=== PATIENT | female | born 1980 | race Caucasian/White ===

== ENCOUNTER 2018-12-13 08:05 | Emergency (ER) | payer BC ==
[~2018-12-13] VITALS: Ht 175.3 cm; Wt 90.7 kg
--- OUTSIDE RECORDS SUMMARY | 2018-12-13 08:08 | XMS REPORT | Clinical Summary ---
Author Author CELINA [facility] Address Unknown Phone Unavailable Care Team Providers Care Slp Teacher Name Role Phone Asuncion Hany Lazo PCP Allergies Comments Active Allergy Reactions Severity Noted Date Chg wipes, rash with itching and burning sensation Chlorhexidine Towelette Rash High 10/08/2017 Medications End Date Status Medication Sig Dispensed Refills Start Date Active olmesartan-hydrochlorothi Take 1 tablet 0 azide (BENICAR HCT) by mouth 40-12.5 mg per tablet daily. Active Problems Problem Noted Date Breast hypertrophy 10/08/2017 Social History Date Tobacco Use Types Packs/Day Years Used Never Smoker Smokeless Tobacco: Never Used Alcohol Use Drinks/Week oz/Week Comments Yes occasional Sex Assigned at Date Recorded Not on file Industry Job Start Date Occupation Not on file Not on file Not on file Travel End Travel History Travel Start No recent travel history available. Last Filed Vital Signs Not on file Plan of Treatment Not on file Results Not on fileafter 12/12/2017 Insurance Payer Benefit Subscriber ID Type Phone Address Plan / Group [employer] xxxxxxxx SURGERY PROGRAM
--- OUTSIDE RECORDS SUMMARY | 2018-12-13 08:08 | XMS REPORT ---
Author Author [facility] Address Unknown Phone Unavailable Care Team Providers Care Shorthand Reporter Name Role Phone ROWDY FREEDMAN PP Unavailable ANNE MORAN Unavailable Unavailable Problems This patient has no known problems. Allergies, Adverse Reactions, Alerts This patient has no known allergies or adverse reactions. Medications This patient has no known medications. Encounters Start Date/Time End Date/Time Encounter Type Admission Type Attending Clinicians Care Facility Care Department Encounter ID 2016-11-10 15:23:00 Inpatient [facility] [id number] 2016-11-09 13:18:00 2016-11-09 13:18:00 Emergency E [facility] [id number] 2012-11-15 16:23:00 2012-11-15 16:23:00 Emergency E [facility] [id number] Results Test Description Test Time Test Comments Text Results Atomic Results Result Comments TISSUE EXAM 2017-10-13 09:05:00 Surgical Pathology Report Case: [id number] Authorizing Provider: Jai Moran MD Collected: 10/08/2017 1121 Ord ering Location: [facility] PERI[facility] Received: 10/09/2017 0751 SERVICES Pathologist: Jyothi Cortez MD Specimens: A) - Breast, Right, 673 grams B) - Breast, Left, 540 grams A. BREAST, RIGHT, EXCISION - BENIGN BREAST TISSUE - BENIGN SKINB. BREAST, LEFT, EXCISION - BENIGN BREAST TISSUE - ATYPICAL LOBULAR HYPERPLASIA - TINY MICROSCOPIC FOCUS - BENIGN SKIN Signing Pathologist Direct Phone Line: [phone] signed by Jyothi Cortez MD on 10/13/2017 at 9:05 AMA. 31161 x 1B. 40270 x 1Breast hypertrophy, abdominal wall defectA. Right breast 673 gm. B. Left breast 540 gmPart A: Consists of multiple fragments of fibrofatty tissue with overlying thomason skin measuring 13 x 13 x 4 cm in aggregate weighing 662 gm. The skin is unremarkable. The breast parenchyma is sectioned showing a fatty to fibrous ratio of 90-10. There is no mass seen grossly.Section code: A1-A4, breast parenchyma and skin.Part B: Labeled "left breast 540 gm" consists of multiple fragments of fibrofatty tissue with overlying thomason skin measuring 16 x 14 x 4 cm in aggregate and weighing 533 gm collectively. The skin is unremarkable. The breast parenchyma has a fatty to fibrous ratio of 00-10. There are no masses present. Embedded Developer sections of the skin and breast tissue are submitted in B1-B4. CG/Giorgio-B. Performed.[facility], Department of Pathology, [address] [place] [address], [place] [address],
--- OUTSIDE RECORDS SUMMARY | 2018-12-13 08:08 | XMS REPORT | Clinical Summary ---
Author Author [facility] Address Unknown Phone Unavailable Care Team Providers Care Jr. Java Developer Name Role Phone Asked, No Pcp PCP Unavailable Allergies No Known Allergies Medications End Date Status Medication Sig Dispensed Refills Start Date Active olmesartan-hydrochlorothi Take 1 tablet 0 azide (BENICAR HCT) by mouth. 40-12.5 mg per tablet 05/21/2018 Discontinued naproxen (NAPROSYN) 500 Take 1 tablet 60 tablet 0 MG tablet (500 mg 8 total) by mouth 2 (two) times a day. 07/30/2018 Discontinued naproxen (NAPROSYN) 500 Take 1 tablet 60 tablet 0 MG tablet (500 mg 8 total) by mouth 2 (two) times a day. 08/17/2018 nitrofurantoin, Take 1 14 capsule 0 macrocrystal-monohydrate, capsule (100 8 (MACROBID) 100 MG mg total) by capsuleIndications: mouth 2 (two) Urinary tract infection times a day without hematuria, site for 7 days. unspecified 11/10/2018 metroNIDAZOLE (FLAGYL) Take 1 tablet 14 tablet 0 500 MG tabletIndications: (500 mg 9 Vaginal odor total) by mouth 2 (two) times a day for 7 days. 11/04/2018 tinidazole (TINDAMAX) 500 Take 4 4 tablet 0 MG tabletIndications: tablets 9 Vaginal odor (2,000 mg total) by mouth once for 1 dose. Active Problems Problem Noted Date Closed fracture of lateral condyle of distal humerus, right, initial 05/21/2018 encounter Clotting disorder 10/26/2002 Overview: Aplastic Anemia. 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 Normal bleeding times since then with no further problems Hypertension 10/26/2002 Overview: started after taking CTX for AA Encounters Care Team Description Date Type Specialty Isaias Casarez II, MD 11/04/2018 Telephone Obstetrics and Gynecology Isaias Casarez II, MD Vaginal odor (Primary Dx); IUD check up 11/03/2018 Office Visit Obstetrics and Gynecology Isaias Casarez II, MD Urinary tract infection without hematuria, site unspecified (Primary Dx) 08/10/2018 Telephone Obstetrics and Gynecology Isaias Casarez II, MD 08/02/2018 Orders Only Obstetrics and Gynecology Isaias Casarez II, MD Encounter for gynecological examination (general) (routine) without abnormal findings (Primary Dx); Encounter for IUD insertion 07/30/2018 Office Visit Obstetrics and Gynecology Dick Doyle MD Sprain of right knee, unspecified ligament, initial encounter (Primary Dx); Closed fracture of lateral condyle of distal humerus, right, initial encounter 06/11/2018 Office Visit Sports Medicine Dick Doyle MD 06/07/2018 Telephone Orthopedic Surgery Dick Doyle MD Closed fracture of lateral condyle of distal humerus, right, initial encounter (Primary Dx); Right elbow pain; Right hamstring muscle strain, initial encounter; Acute pain of right knee 05/21/2018 Office Visit Sports Medicine after 12/12/2017 Family History Medical History Relation Name Comments No Known Problems Father No Known Problems Mother Relation Name Status Comments Father Mother Social History Date Tobacco Use Types Packs/Day Years Used Never Smoker Smokeless Tobacco: Never Used Alcohol Use Drinks/Week oz/Week Comments Yes Sex Assigned at Date Recorded Not on file Industry Job Start Date Occupation Not on file Not on file Not on file Travel End Travel History Travel Start No recent travel history available. Last Filed Vital Signs Time Taken Vital Sign Reading 11/03/2018 11:07 AM RADIUS CORNER MACHINE OPERATOR Blood Pressure 129/85 11/03/2018 11:07 AM RADIUS CORNER MACHINE OPERATOR Pulse 69 07/30/2018 1:35 PM CDT Temperature 37.1 C (98.8 F) 07/30/2018 1:35 PM CDT Respiratory Rate 20 - Oxygen Saturation - - Inhaled Oxygen - Concentration 11/03/2018 11:07 AM RADIUS CORNER MACHINE OPERATOR Weight 90.7 kg (200 lb) 07/30/2018 1:35 PM CDT Height 175.3 cm (5' 9") 11/03/2018 11:07 AM RADIUS CORNER MACHINE OPERATOR Body Mass Index 29.53 Plan of Treatment Health Maintenance Due Date Last Done Comments CERVICAL CANCER SCREENING 2000 INFLUENZA VACCINE 05/26/2018 Procedures Comments Procedure Name Priority Date/Time Associated Diagnosis SURESWAB(R), CT/NG, T Routine 11/03/2018 Vaginal odor VAGINALIS 11:54 AM RADIUS CORNER MACHINE OPERATOR SURESWAB(R), CANDIDIASIS, Routine 11/03/2018 Vaginal odor PCR 11:45 AM RADIUS CORNER MACHINE OPERATOR SURESWAB(R) BACTERIAL Routine 11/03/2018 Vaginal odor VAGINOSIS DNA, QN, PCR 11:45 AM RADIUS CORNER MACHINE OPERATOR URINALYSIS, COMPLETE, Routine 08/02/2018 Encounter for WITH REFLEX TO CULTURE 8:38 AM CDT gynecological examination (general) (routine) without abnormal findings Encounter for IUD insertion URINE CULTURE Routine 08/02/2018 8:38 AM CDT THINPREP TIS PAP AND HPV Routine 08/02/2018 MRNA E6/E7, CT/NG, TRICH 12:00 AM CDT POC , URINE Routine 07/30/2018 Encounter for 3:39 PM CDT gynecological examination (general) (routine) without abnormal findings Encounter for IUD insertion XR KNEE 4+ VW RIGHT Routine 06/11/2018 Sprain of right knee, 10:06 AM CDT unspecified ligament, initial encounter XR ELBOW 3+ VW RIGHT Routine 06/11/2018 Closed fracture of 10:05 AM CDT lateral condyle of distal humerus, right, initial encounter XR ELBOW 3+ VW RIGHT Routine 05/21/2018 Elbow sprain, right, 8:32 AM CDT initial encounter after 12/12/2017 Results * SURESWAB(R), CT/NG, T VAGINALIS (11/03/2018 11:54 AM RADIUS CORNER MACHINE OPERATOR) Chlamydia trachomatis NOT DETECTED [facility] RNA, TMA Neisseria gonorrhoeae NOT DETECTED [facility] RNA, TMA Comment: REFERENCE RANGE:NOT DETECTED This test was performed using the APTIMA(R) COMBO2 Assay (GEN-PROBE). http://education.Azingo/faq/EQB319 (This link is being provided for informational/ educational purposes only.) Sureswab(r) trichomonas NOT DETECTED [facility] vaginalis RNA, QL, TMA Comment: REFERENCE RANGE: NOT DETECTED This test was performed using the APTIMA(R) Trichomonas vaginalis assay (Gen-Probe(R)). For additional information, please refer to http://education.Azingo/faq/Trichomonastma Specimen Swab Resulting Agency Comment Performing Organization Information: Site ID: [id number] Name: [facility] Address: [address] [place] [phone] Director: Connor Bowers MD Performing Organization Address [facility] Phone Number [facility] [address] [place] [phone] * SURESWAB(R), CANDIDIASIS, PCR (11/03/2018 11:45 AM RADIUS CORNER MACHINE OPERATOR) C. albicans, DNA NOT DETECTED [facility] C. glabrata, DNA NOT DETECTED [facility] C. tropicalis, DNA NOT DETECTED [facility] C. parapsilosis, DNA NOT DETECTED [facility] Comment: REFERENCE RANGE: NOT DETECTED This test was developed and its analytical performance characteristics have been determined by [facility]. It has not been cleared or approved by FDA. This assay has been validated pursuant to the CLIA regulations and is used for clinical purposes. Specimen Swab Resulting Agency Comment Performing Organization Information: Site ID: [id number] Name: [facility] Address: [address] [place] [phone] Director: Connor Bowers MD Performing Organization Address [facility] Phone Number [facility] [address] [place] [phone] * SURESWAB(R) BACTERIAL VAGINOSIS DNA, QN, PCR (11/03/2018 11:45 AM RADIUS CORNER MACHINE OPERATOR) BV category EQUIVOCAL (A) [facility] Lactobacillus species 6.5 Log (cells/mL) [facility] Atopobium vaginae 7.7 Log (cells/mL) [facility] Megasphaera species NOT DETECTED Log (cells/mL) [facility] Gardnerella vaginalis 7.2 Log (cells/mL) [facility] Comment: REFERENCE RANGE: BV CATEGORY: NOT SUPPORTIVE NOT SUPPORTIVE OF BV: The pattern of results is not supportive of a diagnosis of BV: 1) Presence of Lactobacillus spp., G. vaginalis levels less than 6.0 log cells/mL, and absence of A. vaginae and Megasphaera spp; or 2) Absence of all targeted organisms; or 3) Absence of Lactobacillus spp. plus G. vaginalis detected at levels less than 6.0 log cells/mL and absence of A. vaginae and Megasphaera spp. EQUIVOCAL FOR BV: The pattern of results is neither supportive nor not supportive of a diagnosis of BV. The patient may be in transition into or out of BV: Presence of Lactobacillus spp. plus G. vaginalis (greater or equal to 6.0 log cells/mL) and/or one of the other BV-associated pathogens. SUPPORTIVE OF BV: The pattern of results is supportive of a diagnosis of BV: Absence of Lactobacillus spp. and presence of G. vaginalis greater than or equal to 6.0 log cells/mL and/or one or both of the other BV-associated pathogens. Concentration for Lactobacilli (L. acidophilus/crispatus, L. jensenii) are collectively reported under the term "Lactobacillus spp.", as these species are among the peroxide producing Lactobacilli thought to be protective against bacterial vaginosis. Atopobium vaginae, Megasphaera spp., and Gardnerella (greater than 6.0 log cells/mL) have been associated with vaginosis when present in the absence of peroxidase producing Lactobacilli. This test was developed and its analytical performance characteristics have been determined by [facility]. It has not been cleared or approved by FDA. This assay has been validated pursuant to the CLIA regulations and is used for clinical purposes. Specimen Swab Resulting Agency Comment Performing Organization Information: Site ID: [id number] Name: [facility] Address: [address] [place] [phone] Director: Connor Bowers MD Performing Organization Address City/State/[facility] Phone Number [facility] [address] [place], [place] [phone] * URINALYSIS, COMPLETE, WITH REFLEX TO CULTURE (08/02/2018 8:38 AM CDT) Color, UA DARK YELLOW YELLOW [facility] [place] Appearance TURBID (A) CLEAR [facility] [place] Specific gravity, urine 1.028 1.001 - 1.035 [facility] [place] pH, urine 6.0 5.0 - 8.0 [facility] [place] Glucose, urine NEGATIVE NEGATIVE [facility] [place] Bilirubin, UA NEGATIVE NEGATIVE [facility] [place] Ketones, UA NEGATIVE NEGATIVE [facility] [place] Occult blood, urine TRACE (A) NEGATIVE [facility] [place] Protein, UA TRACE (A) NEGATIVE [facility] [place] Nitrite, UA POSITIVE (A) NEGATIVE [facility] [place] Leukocyte esterase, UA NEGATIVE NEGATIVE [facility] [place] WBC, UA 6-10 (A) < OR=5 /HPF [facility] [place] RBC, UA 0-2 < OR=2 /HPF [facility] [place] Squamous epithelial 0-5 < OR=5 /HPF [facility] cells, UA [place] Bacteria, UA MODERATE (A) NONE SEEN /HPF [facility] [place] Calcium oxalate crystals, FEW NONE OR FEW /HPF [facility] UA [place] Amorphous crystals MANY (A) NONE OR FEW /HPF [facility] [place] Hyaline casts, UA NONE SEEN NONE SEEN /LPF [facility] [place] Reflex CULTURE INDICATED - RESULTS TO [facility] FOLLOW [place] Resulting Agency Comment Performing Organization Information: Site ID: [id number] Name: [facility] Address: [address] [place] [phone] Director: Charlee Izquierdo Performing Organization Address [facility] Hospitalcode [place] [address] * Urine culture (08/02/2018 8:38 AM CDT) Urine culture SEE NOTE (A) [facility] Comment: [place] CULTURE, URINE, ROUTINE MICRO NUMBER:[id number] TEST STATUS: FINAL SPECIMEN SOURCE: URINE SPECIMEN QUALITY:ADEQUATE RESULT: 50,000-100,000 CFU/mL of Escherichia coli E.coli -------- -------- INT [place] AMOX/CLAVULANATE R >=32 AMPICILLIN R >=32 AMP/SULBACTAM R >=32 CEFAZOLIN NR<=4 2 CEFEPIME S <=1 CEFTRIAXONE S <=1 CIPROFLOXACIN S <=0.25 GENTAMICIN S <=1 IMIPENEM S <=0.25 LEVOFLOXACIN S <=0.12 NITROFURANTOIN S <=16 PIP/TAZOBACTAM S <=4 TOBRAMYCIN S <=1 TRIMETHOPRIM/SULFA S <=20 S=SusceptibleI=Intermediat eR=Resistant*=Not Tested NR=Not ReportedNN=See Therapy Comments THERAPY COMMENTS Note 1: For infections other than uncomplicated UTI caused by E. coli, K. pneumoniae or P. mirabilis: Cefazolin is resistant if MIREILLE > or=8 mcg/mL. (Distinguishing susceptible versus intermediate for isolates with MI[place]LE < or=4 mcg/mL requires additional testing.) Note 2: For uncomplicated UTI caused by E. coli, K. pneumoniae or P. mirabilis: Cefazolin is susceptible if [place] <32 mcg/mL and predicts susceptible to the oral agents cefaclor, cefdinir, cefpodoxime, cefprozil, cefuroxime, cephalexin and loracarbef. Resulting Agency Comment Performing Organization Information: Site ID: [id number] Name: [facility] Address: [address] [place] [phone] Director: Charlee Izquierdo Performing Organization Address City/State/Zipcode [place] [address] * THINPREP TIS PAP AND HPV mRNA E6/E7, CT/NG, TRICH (08/02/2018 12:00 AM CDT) Clinical information None given [facility] [place] Date of last menstrual NONE GIVEN [facility] period [place] Prev. pap: NONE GIVEN [facility] [place] Prev. bx: NONE GIVEN [facility] [place] Source None given [facility] [place] Statement of adequacy Comment: [facility] Satisfactory for evaluation. [place] Endocervical/transformation zone component present. Interpretation/result: Comment: Negative for [facility] intraepithelial lesion or [place] malignancy. Comment Comment: [facility] This case could not be M[place]ALL evaluated with computer assisted technology. The slide was manually screened according to routine procedures. Rail Loader Comment: [facility] KXJ, CT(ASCP) [place] CT screening location: [address], [place] [address] Comment Comment: [facility] EXPLANATORY NOTE: [place] The Pap is a screening test for cervical cancer. It is not a diagnostic test and is subject to false negative and false positive results. It is most reliable when a satisfactory sample, regularly obtained, is submitted with relevant clinical findings and history, and when the Pap result is evaluated along with historic and current clinical information. HPV mRNA e6/e7 Not Detected Not Detected [facility] Comment: [place] This test was performed using the APTIMA HPV Assay ([employer] This assay detects E6/E7 viral messenger RNA (mRNA) from 14 high-risk HPV types (16,18,31,33,35,39,45,51,52,56 ,58,59,66,68). The analytical performance characteristics of this assay have been determined by [facility]. The modifications have not been cleared or approved by the FDA. This assay has been validated pursuant to the CLIA regulations and is used for clinical purposes. Chlamydia trachomatis NOT DETECTED NOT DETECTED [facility] RNA, [facility] Neisseria gonorrhoeae NOT DETECTED NOT DETECTED [facility] RNA, [facility] [place] (Always message) Comment: [facility] This test was performed using [place] the APTIMA COMBO2 Assay ([employer] The analytical performance characteristics of this assay, when used to test SurePath specimens have been determined by [facility]. Trichomonas vaginalis, ql NOT DETECTED NOT DETECTED [facility] tma, pap vial Comment: [place] This test was performed using the APTIMA(R) Trichomonas vaginalis assay (Gen-Probe(R)). For more information on this test, go to: http://education.[employer].com/faq/Trichomonastma The performance characteristics of this assay when used to test [facility](R) specimens have been determined by [facility]. Performance characteristics refer to the analytical performance of this test. Narrative Performed At FASTING: UNKNOWN [facility] Resulting Agency Comment Performing Organization Information: Site ID: [id number] Name: [facility] Address: [address] [place] [phone] Director: Charlee Izquierdo Performing Organization Address City/State/Zipcode Phone Number [facility] [place] [phone] * POC , urine (07/30/2018 3:39 PM CDT) test urine, POC NegativeComment: n QC done No Specimen Urine * XR Knee 4+ Vw Right (06/11/2018 10:06 AM CDT) Narrative Performed At [facility] Normal joint spaces with no obvious fractures or dislocations Performing Organization Address [facility] Phone Number [facility] [address] [place] [address] * XR Elbow 3+ Vw Right (06/11/2018 10:05 AM CDT) Only the most recent of 2 results within the time period is included. Narrative Performed At [facility] Adequate callus formation over the lateral humeral condyle fracture with no evidence of shifting or rotation from previous x-rays Performing Organization Address [facility] Phone Number [facility] [address] [place] [address] after 12/12/2017 Insurance Payer Benefit Subscriber ID Type Phone Address Plan / Group BCBS BCBS xxxxxxxxxxxx PPO CHOICE PPO/KACY MOTTA PPO Advance Directives Patient has advance care planning documents on file. For more information, nicolette luque contact: Dajuan Quezada [address] [place] [address]
[2018-12-13] MEDS ORDERED: SODIUM CHLORIDE 0.9% 1000ML 1,000 ML IV STA (08:25)
[2018-12-13] MEDS ORDERED: CEFTRIAXONE SOD 1 GM VIAL IV ONE (09:00)
--- NOTE | 2018-12-13 09:49 | Diagnostic Imaging Report ---
EXAMINATION: CT of the abdomen and pelvis without contrast. TECHNIQUE: Helical CT images of the abdomen and pelvis were performed from the lung bases to the lesser trochanters. No intravenous contrast was given per renal stone protocol. Coronal and sagittal reformatted images were obtained.Dose modulation, iterative reconstruction, and/or weight based adjustment of the mA/kV was utilized to reduce the radiation dose to as low as reasonably achievable. COMPARISON: None. CLINICAL HISTORY:Right upper quadrant pain DISCUSSION: ABSENCE OF INTRAVENOUS CONTRAST DECREASES SENSITIVITY FOR DETECTION OF FOCAL LESIONS AND VASCULAR PATHOLOGY. ABDOMEN/PELVIS: LOWER THORAX: Unremarkable. HEPATOBILIARY:No focal hepatic lesions. No biliary ductal dilation. Possible gallbladder sludge. No calcified stones. SPLEEN: 5 splenic hypodensities ranging from 2.3 cm to 1.4 cm PANCREAS: No focal masses or ductal dilatation. ADRENALS: No adrenal nodules. KIDNEYS/URETERS: 0.7 cm calculus in the right renal pelvis with mild adjacent inflammatory change. Inferior pole punctate calculus. Left kidney 4 calculi with the largest 0.5 cm. PELVIC ORGANS/BLADDER: Bladder nondistended. Pelvis IUD. PERITONEUM/RETROPERITONEUM: No free air or fluid. LYMPH NODES: No intra-abdominal,retroperitoneal, pelvic or inguinal lymphadenopathy. VESSELS: Limited evaluation. GI TRACT: Scattered diverticulosis without inflammatory change. Appendix normal. BONES AND SOFT TISSUES: No bony destructive lesions. No soft tissue abnormalities. IMPRESSION: Bilateral renal calculi with the largest 0.7 cm in the right renal pelvis with minimal hydronephrosis and perinephric inflammatory change. Indeterminate 5 splenic hypodensities. A nonemergent multiphasic CT or MRI suggested. Diverticulosis without inflammatory change. Signed by: Dr. Igor Elizabeth M.D. on 12/13/2018 9:45 AM
[2018-12-13] MEDS ORDERED: KETOROLAC TROMETHAMINE 30 MG/ML VIAL IV STA (10:09)
--- NOTE | 2018-12-13 10:22 | NUR ---
URINE INTO VALENCIA TUBE AND LABELLED AND INTO BIOBAG INTO FRIDGE FOR CX PER MD ORDER.
== END 2018-12-13 10:27 | disposition home or self-care (01) ==
LOC: FSED 08:05
DX: R10.9 Unspecified abdominal pain (principal); R31.9 Hematuria, unspecified; N20.0 Calculus of kidney; N10 Acute pyelonephritis; N16 Renal tubulo-interstitial disorders in diseases classified elsewhere; N13.30 Unspecified hydronephrosis
CPT/HCPCS: 74176; 80048; 80076; 81003; 81025; 85025; 87086; 87186; 87400; 99284; J0696; J1885; J7030

== ENCOUNTER 2024-05-09 08:43 | Observation (INO) | payer BC ==
[2024-05-09] VITALS (7 sets, daily range): BP systolic 145–183; BP diastolic 74–99; PULSE 67–80; RESP 16–20; TEMP 97.7–98.6; O2SAT 97–100
[~2024-05-09] VITALS: Ht 172.7 cm; Wt 90.0 kg
[2024-05-09 09:01] LABS: BASOPHILS % 0.2 % (0.0-1.0); EOSINOPHILS # (AUTO) 0.1 (0.0-0.4); HEMATOCRIT 42.8 % (34.2-44.1); HEMOGLOBIN 14.4 g/dL (12.0-16.0); LYMPHOCYTES # (AUTO) 1.3 (1.0-3.2); LYMPHOCYTES % 16.2 % (18.0-39.1); MEAN CORPUSCULAR HEMOGLOBIN 30.7 pg (28-32); MEAN CORPUSCULAR HGB CONC 33.6 g/dL (31-35); MEAN CORPUSCULAR VOLUME 91.3 fL (81-99); MONOCYTES # (AUTO) 0.7 (0.2-0.8); MONOCYTES % 8.6 % (4.4-11.3); NEUTROPHILS # (AUTO) 6.1 (2.1-6.9); NEUTROPHILS % 73.8 % (38.7-80.0); PLATELET COUNT 168 x10e3/uL (140-360); RED BLOOD COUNT 4.69 x10e6/uL (3.6-5.1); RED CELL DISTRIBUTION WIDTH 12.8 % (11.7-14.4); WHITE BLOOD COUNT 8.22 x10e3/uL (4.8-10.8)
[2024-05-09] MEDS: SODIUM CHLORIDE 0.9% 1000ML 1,000 ML IV ONE (09:10)
[2024-05-09 09:22] LABS: ALANINE AMINOTRANSFERASE 14 IU/L (0-55); ALBUMIN 3.9 g/dL (3.5-5.0); ALBUMIN/GLOBULIN RATIO 1.1 (0.8-2.0); ALKALINE PHOSPHATASE 75 IU/L (40-150); ANION GAP 13.3 mmol/L (8-16); BLOOD UREA NITROGEN 16 mg/dL (7-26); BUN/CREATININE RATIO 14 (6-25); CALCIUM 8.8 mg/dL (8.4-10.2); CARBON DIOXIDE 25 mmol/L (22-29); CHLORIDE 101 mmol/L (98-107); CREATININE, SERUM 1.17 mg/dL (0.57-1.11); EST GLOMERULAR FILTRATION RATE 59 ML/MIN (>=60); GLUCOSE 95 mg/dL (74-118); LIPASE 18 U/L (8-78); SODIUM 136 mmol/L (136-145); TOTAL PROTEIN 7.3 g/dL (6.5-8.1)
[2024-05-09 09:24] LABS: POTASSIUM 3.3 mmol/L (3.5-5.1)
[2024-05-09] MEDS: ONDANSETRON HCL INJ 2MG/ML 2ML 2 MG/ML VIAL IV STA (09:30)
[2024-05-09 09:31] LABS: CLARITY,URINE CLOUDY (CLEAR); COLOR,URINE YELLOW (YELLOW); GLUCOSE, URINE NEGATIVE (NEGATIVE); KETONES,URINE NEGATIVE (NEGATIVE); LEUKOCYTE ESTERASE ,URINE NEGATIVE (NEGATIVE); NITRITE,URINE NEGATIVE (NEGATIVE); PH,URINE 6 (5 - 7); PROTEIN,URINE DIPSTICK TRACE (NEGATIVE); URINE UROBILINOGEN 1 mg/dL (0.2 - 1)
[2024-05-09] MEDS: KETOROLAC TROMETHAMINE 30 MG/ML VIAL IV STA (09:31)
[2024-05-09 09:32] LABS: BILIRUBIN,URINE SMALL (NEGATIVE)
[2024-05-09 09:36] LABS: BILIRUBIN,TOTAL 1.3 mg/dL (0.2-1.2)
[2024-05-09 09:47] LABS: BACTERIA,URINE MODERATE /HPF; EPITHELIAL CELLS,URINE MANY /LPF; RBC,URINE 0-5 /HPF (0-5)
[2024-05-09] MEDS ORDERED: IOPAMIDOL 370 MG/ML 100 ML INFUS..BTL INJ ONE (10:17)
[2024-05-09] MEDS: SODIUM CHLORIDE 0.9% 1000ML 1,000 ML IV SCH (12:01)
[2024-05-09] MEDS: ONDANSETRON HCL INJ 2MG/ML 2ML 2 MG/ML VIAL IV PRN (13:14)
[2024-05-09] MEDS: Morphine 4mg INJECTION 4 MG/ML INJ IV PRN (13:14)
[2024-05-09] MEDS ORDERED: HYDROMORPHONE 1MG/1ML INJ IV PRN (14:00)
[2024-05-09] MEDS ORDERED: HYDRALAZINE HCL 20 MG/ML VIAL IV PRN (14:00)
[2024-05-09] MEDS: HYDROMORPHONE 1MG/1ML INJ IV PRN (14:20)
[2024-05-09] MEDS: HYDRALAZINE HCL 20 MG/ML VIAL IV PRN (14:43)
[2024-05-09] MEDS ORDERED: BENICAR20 MG PO (15:40)
[2024-05-09] MEDS: KETOROLAC TROMETHAMINE 30 MG/ML VIAL IV PRN (23:10)
[2024-05-10] VITALS: BP 147/110; PULSE 73; RESP 18; TEMP 98.1; O2SAT 100
[2024-05-10 04:00] VITALS: BP 138/83; PULSE 79; RESP 18; TEMP 98.6; O2SAT 98
[2024-05-10 05:27] LABS: BASOPHILS % 0.3 % (0.0-1.0); EOSINOPHILS # (AUTO) 0.1 (0.0-0.4); EOSINOPHILS % 1.4 % (0.0-6.0); HEMATOCRIT 39.5 % (34.2-44.1); LYMPHOCYTES # (AUTO) 1.5 (1.0-3.2); LYMPHOCYTES % 19.8 % (18.0-39.1); MEAN CORPUSCULAR HEMOGLOBIN 30.6 pg (28-32); MEAN CORPUSCULAR HGB CONC 32.9 g/dL (31-35); MEAN CORPUSCULAR VOLUME 92.9 fL (81-99); MONOCYTES # (AUTO) 0.8 (0.2-0.8); MONOCYTES % 9.9 % (4.4-11.3); NEUTROPHILS # (AUTO) 5.3 (2.1-6.9); NEUTROPHILS % 68.3 % (38.7-80.0); PLATELET COUNT 148 x10e3/uL (140-360); RED BLOOD COUNT 4.25 x10e6/uL (3.6-5.1); WHITE BLOOD COUNT 7.77 x10e3/uL (4.8-10.8)
[2024-05-10 05:59] LABS: ALBUMIN 3.2 g/dL (3.5-5.0); ALBUMIN/GLOBULIN RATIO 1.2 (0.8-2.0); ANION GAP 10.4 mmol/L (8-16); CALCIUM 8.1 mg/dL (8.4-10.2); CREATININE, SERUM 1.15 mg/dL (0.57-1.11); TOTAL PROTEIN 5.9 g/dL (6.5-8.1)
[2024-05-10 06:04] LABS: POTASSIUM 3.4 mmol/L (3.5-5.1)
[2024-05-10 08:23] VITALS: BP 140/88; PULSE 76; RESP 19; TEMP 98.4; O2SAT 99
[2024-05-10] MEDS: OLMESARTAN 20 MG TAB PO SCH (08:48)
[2024-05-10 09:00] VITALS: BP 140/88; PULSE 76; RESP 19; TEMP 98.4; O2SAT 99
[2024-05-10 11:42] VITALS: BP 122/82; PULSE 73; RESP 19; TEMP 98.4; O2SAT 98
[2024-05-10 15:56] VITALS: BP 120/78; PULSE 73; RESP 19; TEMP 98.4; O2SAT 98
== END 2024-05-10 18:08 | disposition home or self-care (01) ==
LOC: ER 08:52 → ERHOLD 11:45 → MED/SURG2 15:23
PROVIDERS: ADMIT Internal Medicine; ATTEND Internal Medicine
DX: K57.32 Diverticulitis of large intestine without perforation or abscess without bleeding (principal); E87.6 Hypokalemia; I10 Essential (primary) hypertension; E28.2 Polycystic ovarian syndrome; Z11.52 Encounter for screening for COVID-19; Z87.442 Personal history of urinary calculi; Z94.6 Bone transplant status; Z79.899 Other long term (current) drug therapy
CPT/HCPCS: 36415 ×2; 74177; 80053 ×2; 81001; 83690; 84702; 85025 ×2; 99284; G0378 ×2; J0360 ×2; J1170; J1885 ×2; J2270; J2405; J2543 ×2; J7030 ×2; Q9967; U0002

== ENCOUNTER 2024-08-12 01:55 | Emergency (ER) | payer BC ==
[~2024-08-12] VITALS: Ht 172.7 cm; Wt 89.8 kg
[~2024-08-12 01:55] MED LIST: BENICAR20 MG PO
[2024-08-12 02:15] VITALS: TEMP 98
[2024-08-12] MEDS: KETOROLAC TROMETHAMINE 30 MG/ML VIAL IV STA (02:15)
[2024-08-12] MEDS: ONDANSETRON HCL INJ 2MG/ML 2ML 2 MG/ML VIAL IV STA (02:15)
[2024-08-12 02:29] LABS: BASOPHILS % 0.1 % (0.0-1.0); EOSINOPHILS # (AUTO) 0.1 (0.0-0.4); EOSINOPHILS % 0.4 % (0.0-6.0); HEMATOCRIT 42.2 % (34.2-44.1); HEMOGLOBIN 14.1 g/dL (12.0-16.0); LYMPHOCYTES # (AUTO) 1.5 (1.0-3.2); LYMPHOCYTES % 9.7 % (18.0-39.1); MEAN CORPUSCULAR HEMOGLOBIN 31.7 pg (28-32); MEAN CORPUSCULAR HGB CONC 33.4 g/dL (31-35); MEAN CORPUSCULAR VOLUME 94.8 fL (81-99); MONOCYTES % 6.3 % (4.4-11.3); NEUTROPHILS % 82.9 % (38.7-80.0); PLATELET COUNT 159 x10e3/uL (140-360); RED BLOOD COUNT 4.45 x10e6/uL (3.6-5.1); RED CELL DISTRIBUTION WIDTH 12.6 % (11.7-14.4); WHITE BLOOD COUNT 15.68 x10e3/uL (4.8-10.8)
[2024-08-12 02:36] LABS: BILIRUBIN,URINE NEGATIVE (NEGATIVE); CLARITY,URINE CLEAR (CLEAR); COLOR,URINE YELLOW (YELLOW); GLUCOSE, URINE NEGATIVE (NEGATIVE); KETONES,URINE NEGATIVE (NEGATIVE); LEUKOCYTE ESTERASE ,URINE NEGATIVE (NEGATIVE); NITRITE,URINE NEGATIVE (NEGATIVE); PH,URINE 6 (5 - 7); PROTEIN,URINE DIPSTICK NEGATIVE (NEGATIVE); URINE UROBILINOGEN 0.2 mg/dL (0.2 - 1)
[2024-08-12 02:37] LABS: PREGNANCY TEST, URINE NEGATIVE (NEGATIVE)
[2024-08-12 02:47] LABS: BACTERIA,URINE MODERATE /HPF; EPITHELIAL CELLS,URINE MODERATE /LPF; RBC,URINE 0-5 /HPF (0-5); WBC,URINE (MAN) 0-5 /HPF (0-5)
[2024-08-12 03:01] LABS: ALBUMIN 3.6 g/dL (3.5-5.0); ANION GAP 14.5 mmol/L (8-16); BILIRUBIN,TOTAL 0.9 mg/dL (0.2-1.2); CALCIUM 9.2 mg/dL (8.4-10.2); CREATININE, SERUM 1.24 mg/dL (0.57-1.11); POTASSIUM 3.5 mmol/L (3.5-5.1); TOTAL PROTEIN 7.2 g/dL (6.5-8.1)
[2024-08-12 03:16] VITALS: PULSE 84; RESP 22
[2024-08-12] MEDS: Morphine 4mg INJECTION 4 MG/ML INJ IV ONE (03:24)
[2024-08-12 04:01] VITALS: BP 252/101; PULSE 70; RESP 17; TEMP 98.1; O2SAT 100
[2024-08-12] MEDS ORDERED: ONDANSETRON ODT4 MG SL (04:03)
[2024-08-12] MEDS ORDERED: HYDROCODON-ACE1 EA12 PO (04:03)
[2024-08-12] MEDS ORDERED: METRONIDAZOLE500 MG PO (04:03)
[2024-08-12] MEDS ORDERED: CIPRO500 MG PO (04:03)
[2024-08-12] MEDS ORDERED: IOPAMIDOL 370 MG/ML 100 ML INFUS..BTL INJ ONE (05:17)
== END 2024-08-12 04:14 | disposition home or self-care (01) ==
LOC: ER 02:01
DX: R10.32 Left lower quadrant pain (principal); K57.32 Diverticulitis of large intestine without perforation or abscess without bleeding; R11.0 Nausea; I10 Essential (primary) hypertension; D64.9 Anemia, unspecified; E28.2 Polycystic ovarian syndrome; N80.9 Endometriosis, unspecified; D73.89 Other diseases of spleen
CPT/HCPCS: 36415; 74177; 80053; 81001; 81025; 83690; 85025; 99284; J1885; J2270; J2405; Q9967

== ENCOUNTER → 2024-09-08 | Day surgery (SDC) | payer BC ==
[~2024-09-08] MED LIST changes: +CIPRO500 MG PO; +FENTANYL CITRATE/PF 100MCG/2 ML INJ ONE; +HYDROCODON-ACE1 EA12 PO; +HYOSCYAMINE SULFATE 0.5 MG/ML INJ ONE; +METRONIDAZOLE500 MG PO; +MIDAZOLAM HCL 2 MG/2 ML VIAL ONE; +ONDANSETRON ODT4 MG SL; +PROPOFOL IV EMULSION 10 MG/ML 20 ML VIAL ONE
[2024-09-08] MEDS: LACTATED RINGER'S 1,000 ML ONE (12:53)
[2024-09-08 13:02] LABS: BASOPHILS % 0.6 % (0.0-1.0); EOSINOPHILS # (AUTO) 0.1 (0.0-0.4); EOSINOPHILS % 1.9 % (0.0-6.0); HEMATOCRIT 45.7 % (34.2-44.1); HEMOGLOBIN 14.9 g/dL (12.0-16.0); LYMPHOCYTES # (AUTO) 1.6 (1.0-3.2); LYMPHOCYTES % 33.1 % (18.0-39.1); MEAN CORPUSCULAR HEMOGLOBIN 30.5 pg (28-32); MEAN CORPUSCULAR HGB CONC 32.6 g/dL (31-35); MEAN CORPUSCULAR VOLUME 93.5 fL (81-99); MONOCYTES # (AUTO) 0.5 (0.2-0.8); MONOCYTES % 10.6 % (4.4-11.3); NEUTROPHILS # (AUTO) 2.6 (2.1-6.9); NEUTROPHILS % 53.6 % (38.7-80.0); PLATELET COUNT 170 x10e3/uL (140-360); RED BLOOD COUNT 4.89 x10e6/uL (3.6-5.1); RED CELL DISTRIBUTION WIDTH 12.8 % (11.7-14.4)
[2024-09-08 14:25] VITALS: BP 137/82; PULSE 71; RESP 13; O2SAT 97
== END | disposition home or self-care (01) ==
LOC: OR 12:36
PROVIDERS: ATTEND Internal Medicine Gastroenterology
DX: Z12.11 Encounter for screening for malignant neoplasm of colon (principal); K63.5 Polyp of colon; K62.1 Rectal polyp; K57.30 Diverticulosis of large intestine without perforation or abscess without bleeding; K64.8 Other hemorrhoids; D64.9 Anemia, unspecified; I12.9 Hypertensive chronic kidney disease with stage 1 through stage 4 chronic kidney disease, or unspecified chronic kidney disease; N18.9 Chronic kidney disease, unspecified; Z87.19 Personal history of other diseases of the digestive system; Z91.041 Radiographic dye allergy status
CPT/HCPCS: 36415; 45378; 45385; 85025; J1980; J2250

== ENCOUNTER 2024-11-23 08:35 | Inpatient (IN) | payer BC ==
[2024-11-18 10:21] LABS: BASOPHILS % 0.2 % (0.0-1.0); EOSINOPHILS # (AUTO) 0.1 (0.0-0.4); EOSINOPHILS % 1.2 % (0.0-6.0); HEMATOCRIT 46.3 % (34.2-44.1); HEMOGLOBIN 14.8 g/dL (12.0-16.0); LYMPHOCYTES # (AUTO) 1.4 (1.0-3.2); LYMPHOCYTES % 24.7 % (18.0-39.1); MEAN CORPUSCULAR HEMOGLOBIN 31.4 pg (28-32); MEAN CORPUSCULAR VOLUME 98.1 fL (81-99); MONOCYTES # (AUTO) 0.4 (0.2-0.8); MONOCYTES % 7.2 % (4.4-11.3); NEUTROPHILS # (AUTO) 3.9 (2.1-6.9); NEUTROPHILS % 66.5 % (38.7-80.0); PLATELET COUNT 158 x10e3/uL (140-360); RED BLOOD COUNT 4.72 x10e6/uL (3.6-5.1); RED CELL DISTRIBUTION WIDTH 13.1 % (11.7-14.4)
[2024-11-18 11:00] LABS: ALBUMIN 4.1 g/dL (3.5-5.0); ALBUMIN/GLOBULIN RATIO 1.2 (0.8-2.0); ANION GAP 14.2 mmol/L (8-16); CALCIUM 9.4 mg/dL (8.4-10.2); CREATININE, SERUM 1.04 mg/dL (0.57-1.11); POTASSIUM 4.2 mmol/L (3.5-5.1); TOTAL PROTEIN 7.4 g/dL (6.5-8.1)
[~2024-11-23] VITALS: Ht 172.7 cm; Wt 90.7 kg
[~2024-11-23 08:35] MED LIST changes: +BENICAR HCT 201 EACH PO; -FENTANYL CITRATE/PF 100MCG/2 ML INJ ONE; -HYOSCYAMINE SULFATE 0.5 MG/ML INJ ONE; -MIDAZOLAM HCL 2 MG/2 ML VIAL ONE; -PROPOFOL IV EMULSION 10 MG/ML 20 ML VIAL ONE
[2024-11-23] MEDS: LACTATED RINGER'S 1,000 ML ONE (09:05)
[2024-11-23] MEDS ORDERED: SUCCINYLCHOLINE CHLORIDE 20 MG/ML 10ML VIAL ONE (09:58)
[2024-11-23] MEDS ORDERED: FENTANYL CITRATE/PF 100MCG/2 ML INJ ONE (09:58)
[2024-11-23] MEDS ORDERED: LIDOCAINE HCL 2% LOCAL INJ 5 ML SDV VIAL INJ ONE (09:58)
[2024-11-23] MEDS ORDERED: ROCURONIUM BROMIDE 1 ML IV ONE (09:58)
[2024-11-23] MEDS ORDERED: SEVOFLURANE INHAL SOLN 250 ML PEN BTL ONE (09:59)
[2024-11-23] MEDS ORDERED: PROPOFOL IV EMULSION 10 MG/ML 20 ML VIAL ONE (09:59)
[2024-11-23] MEDS ORDERED: SODIUM CHLORIDE 0.9% INJ 10 ML VIAL ONE (10:46)
[2024-11-23] MEDS ORDERED: ACETAMINOPHEN 1000 MG/100 ML 100 ML IV ONE (11:17)
[2024-11-23] MEDS ORDERED: SUGAMMADEX SODIUM 200 MG/2 ML VIAL IV ONE (12:03)
[2024-11-23] MEDS ORDERED: LACTATED RINGER'S 1,000 ML ONE ×2 (12:07→13:59)
[2024-11-23] MEDS ORDERED: HYDROMORPHONE 2MG/ML ONE (12:37)
[2024-11-23] MEDS ORDERED: DEXAMETHASONE SOD PHOS INJ 4 MG/ML SDV ONE ×2 (14:05)
[2024-11-23] MEDS ORDERED: ONDANSETRON HCL INJ 2MG/ML 2ML 2 MG/ML VIAL ONE (14:05)
[2024-11-23] MEDS ORDERED: FAMOTIDINE 20 MG/2 ML VIAL IV ONE (14:05)
[2024-11-23] MEDS: FENTANYL CITRATE/PF 100MCG/2 ML INJ ONE (15:20)
[2024-11-23] MEDS: HYDRALAZINE HCL 20 MG/ML VIAL ONE (15:40)
[2024-11-23 16:00] VITALS: BP 162/101; PULSE 81; RESP 16; TEMP 97.5; O2SAT 96
[2024-11-23 16:48] VITALS: BP 147/91; PULSE 74; RESP 18; TEMP 97.7; O2SAT 99
[2024-11-23] MEDS: HYDROMORPHONE 1MG/1ML INJ IV PRN (17:42)
[2024-11-23] MEDS: SODIUM CHLORIDE 0.9% 1000ML 1,000 ML IV SCH (17:46)
[2024-11-23] MEDS: SODIUM CHLORIDE 0.9% 250ML IRRIG IR SCH (18:00)
[2024-11-23 20:00] VITALS: BP 133/75; PULSE 79; RESP 16; TEMP 97.6; O2SAT 99
[2024-11-23] MEDS: BUPIVACAINE LIPOSOME/PF 266 MG/20 ML IJ ONE (20:41)
[2024-11-23] MEDS: ACETAMINOPHEN 1000 MG/100 ML IV PRN (20:47)
[2024-11-24] VITALS (8 sets, daily range): BP systolic 137–180; BP diastolic 79–94; PULSE 66–72; RESP 17–18; TEMP 97.5–98.8; O2SAT 99–100
[2024-11-24 05:39] LABS: BASOPHILS % 0.1 % (0.0-1.0); EOSINOPHILS % 0.2 % (0.0-6.0); HEMATOCRIT 39.6 % (34.2-44.1); HEMOGLOBIN 13.2 g/dL (12.0-16.0); LYMPHOCYTES # (AUTO) 0.8 (1.0-3.2); LYMPHOCYTES % 4.6 % (18.0-39.1); MEAN CORPUSCULAR HEMOGLOBIN 31.2 pg (28-32); MEAN CORPUSCULAR HGB CONC 33.3 g/dL (31-35); MEAN CORPUSCULAR VOLUME 93.6 fL (81-99); MONOCYTES % 5.8 % (4.4-11.3); NEUTROPHILS # (AUTO) 15.4 (2.1-6.9); NEUTROPHILS % 88.8 % (38.7-80.0); PLATELET COUNT 156 x10e3/uL (140-360); RED BLOOD COUNT 4.23 x10e6/uL (3.6-5.1); RED CELL DISTRIBUTION WIDTH 13.4 % (11.7-14.4); WHITE BLOOD COUNT 17.34 x10e3/uL (4.8-10.8)
[2024-11-24 06:27] LABS: ANION GAP 13.7 mmol/L (8-16); CALCIUM 8.2 mg/dL (8.4-10.2); POTASSIUM 4.7 mmol/L (3.5-5.1)
[2024-11-24] MEDS: ONDANSETRON HCL INJ 2MG/ML 2ML 2 MG/ML VIAL IV PRN (07:21)
[2024-11-24] MEDS: HYDROMORPHONE 1MG/1ML INJ IV PRN (19:43)
[2024-11-25] VITALS (9 sets, daily range): BP systolic 145–181; BP diastolic 71–94; PULSE 62–73; RESP 16–18; TEMP 97.2–98.7; O2SAT 96–100
[2024-11-25 07:57] LABS: BASOPHILS % 0.1 % (0.0-1.0); EOSINOPHILS % 0.3 % (0.0-6.0); HEMATOCRIT 37.6 % (34.2-44.1); HEMOGLOBIN 12.3 g/dL (12.0-16.0); LYMPHOCYTES # (AUTO) 1.8 (1.0-3.2); LYMPHOCYTES % 18.9 % (18.0-39.1); MEAN CORPUSCULAR HGB CONC 32.7 g/dL (31-35); MEAN CORPUSCULAR VOLUME 94.7 fL (81-99); MONOCYTES # (AUTO) 0.8 (0.2-0.8); NEUTROPHILS % 72.4 % (38.7-80.0); PLATELET COUNT 138 x10e3/uL (140-360); RED BLOOD COUNT 3.97 x10e6/uL (3.6-5.1); RED CELL DISTRIBUTION WIDTH 13.6 % (11.7-14.4); WHITE BLOOD COUNT 9.69 x10e3/uL (4.8-10.8)
[2024-11-25 08:26] LABS: ANION GAP 12.9 mmol/L (8-16); CALCIUM 8.2 mg/dL (8.4-10.2); CREATININE, SERUM 0.95 mg/dL (0.57-1.11); POTASSIUM 3.9 mmol/L (3.5-5.1)
[2024-11-25] MEDS: HYDRALAZINE HCL 20 MG/ML VIAL IV ONE (13:05)
[2024-11-25] MEDS: BISACODYL 10 MG SUPP PR SCH (20:50)
[2024-11-26] VITALS (8 sets, daily range): BP systolic 129–178; BP diastolic 67–91; PULSE 63–73; RESP 18–20; TEMP 97.5–98.4; O2SAT 98–100
[2024-11-26 06:10] LABS: BASOPHILS % 0.2 % (0.0-1.0); EOSINOPHILS # (AUTO) 0.1 (0.0-0.4); EOSINOPHILS % 1.3 % (0.0-6.0); HEMATOCRIT 38.1 % (34.2-44.1); HEMOGLOBIN 12.7 g/dL (12.0-16.0); LYMPHOCYTES # (AUTO) 1.2 (1.0-3.2); LYMPHOCYTES % 14.7 % (18.0-39.1); MEAN CORPUSCULAR HGB CONC 33.3 g/dL (31-35); MEAN CORPUSCULAR VOLUME 92.9 fL (81-99); MONOCYTES # (AUTO) 0.8 (0.2-0.8); MONOCYTES % 8.9 % (4.4-11.3); NEUTROPHILS # (AUTO) 6.3 (2.1-6.9); NEUTROPHILS % 74.4 % (38.7-80.0); PLATELET COUNT 134 x10e3/uL (140-360); WHITE BLOOD COUNT 8.45 x10e3/uL (4.8-10.8)
[2024-11-26 06:29] LABS: ANION GAP 15.4 mmol/L (8-16); CALCIUM 7.9 mg/dL (8.4-10.2); CREATININE, SERUM 0.83 mg/dL (0.57-1.11)
[2024-11-26 06:35] LABS: POTASSIUM 3.4 mmol/L (3.5-5.1)
[2024-11-26] MEDS: OLMESARTAN 20 MG TAB PO SCH (08:07)
[2024-11-26] MEDS: HYDROCODONE/APAP 7.5MG-325MG 1 EA TAB PO PRN (21:35)
[2024-11-27] VITALS (8 sets, daily range): BP systolic 126–168; BP diastolic 71–97; PULSE 58–77; RESP 16–20; TEMP 97.8–99; O2SAT 97–100
[2024-11-28 00:25] VITALS: BP 150/88; PULSE 60; RESP 20; TEMP 98.1; O2SAT 98
[2024-11-28 04:20] VITALS: BP 136/73; PULSE 64; RESP 18; TEMP 98.2; O2SAT 98
[2024-11-28 08:00] VITALS: BP 136/73; PULSE 64; RESP 18; TEMP 98.2; O2SAT 98
[2024-11-28 08:49] VITALS: BP 162/94; PULSE 57; RESP 20; TEMP 97.8; O2SAT 100
[2024-11-28 09:00] VITALS: BP 162/94; PULSE 57; RESP 20; TEMP 97.8; O2SAT 100
[2024-11-28 09:18] VITALS: BP 162/94
[2024-11-28] MEDS ORDERED: ONDANSETRON HCL 4 MG ORAL DISINTEGRATING TAB PO PRN (14:30)
[2024-11-29] MEDS ORDERED: PANTOPRAZOLE SOD 40 MG TABEC PO SCH (07:30)
== END 2024-11-28 15:30 | disposition home or self-care (01) | DRG 330 ==
LOC: OR 08:35 → PACU V 14:38 → MED/SURG 16:38
PROVIDERS: ADMIT Surgery; ATTEND Surgery
PROC: 0DB Gastrointestinal System, Excision (ICD-10-PCS; 2024-11-23)
PROC: 0DTN4ZG Resection of Sigmoid Colon, Percutaneous Endoscopic Approach, Hand-Assisted (ICD-10-PCS; principal; 2024-11-23 10:53)
DX: K57.32 Diverticulitis of large intestine without perforation or abscess without bleeding (principal); Z94.81 Bone marrow transplant status; I10 Essential (primary) hypertension; Z91.041 Radiographic dye allergy status; Z92.21 Personal history of antineoplastic chemotherapy
CPT/HCPCS: 36415; 80048; 80053; 81025; 85025; 88305; 88307; 93005; C1766; J0330; J0360; J0694; J1100; J1171; J2003; J2405; J2470; J7030